=== PATIENT | female | born 1985 | race Asian ===

== ENCOUNTER 2017-09-26 03:43 | Emergency (ER) | payer MEDICAID ==
[~2017-09-26] VITALS: Ht 157.5 cm; Wt 68.0 kg
[2017-09-26] MEDS ORDERED: ACETAMINOPHEN WITH CODEINE 300/30MG TABLET PO STA (04:51)
[2017-09-26 06:15] VITALS: BP 126/78
== END 2017-09-26 06:58 | disposition home or self-care (01) ==
LOC: ER 03:43
DX: R07.89 Other chest pain (principal); E78.00 Pure hypercholesterolemia, unspecified; F32.9 Major depressive disorder, single episode, unspecified; F17.210 Nicotine dependence, cigarettes, uncomplicated
CPT/HCPCS: 71045; 81025; 93005; 99284; Z7610